=== PATIENT | female | born 1995 | race Caucasian/White ===

== ENCOUNTER 2016-11-27 13:24 | Emergency (ER) | payer OTHER ==
[~2016-11-27 13:24] MED LIST: CIPRO250 M2 PO; CIPROFLOXACIN250 M1 PO; COLACE100 M1 PO; HYDROCODON-ACE1 EA16 PO; NO MEDS; NORCO 5-325 TA1 EACH PO; NUCYNTA50 M1 PO; SPRINTEC 28 DA1 EACH PO; ZOFRAN ODT4 MG PO
[2016-11-27] MEDS ORDERED: OMEPRAZOLE20 M4 PO (13:32)
[2016-11-27] MEDS ORDERED: BIRTH CONTROL (13:32)
[2016-11-27 14:45] LABS: BASO % 0.1 % (0-2); EOS % 0.1 % (0-7); HGB-HEMOGLOBIN 15.1 gm/dl (12.0-15.5); IMMATURE GRANULOCYTES ABSOLUTE 0.03 tho/cmm (0-0.03); IMMATURE GRANULOCYTES PERCENT 0.2 % (0-0.3); LYMPH % 7.6 % (20-45); LYMPH ABSOLUTE COUNT 1.3 tho/cmm (0.8-4.5); MCH (MEAN CORPUSCULAR HGB) 29.8 pg (28.0-32.0); MCHC MEAN CORPUSCULAR HGB CONC 33.6 % (32.0-36.0); MCV (MEAN CELL VOLUME) 88.8 fl (82.0-96.0); MEAN PLATELET VOLUME 10.2 cmc (9.4-12.4); MONO % 3.5 % (0-12); MONOCYTE ABSOLUTE COUNT 0.6 tho/cmm (0.0-1.2); NEUTROPHIL ABSOLUTE COUNT 14.9 tho/cmm (1.6-8.0); NEUTROPHIL-AUTOMATED 14.9 tho/cmm (1.6-8.0); NEUTROPHILS % 88.5 % (40-80); PLATELET COUNT 287 tho/cmm (150-450); RED BLOOD COUNT 5.07 mil/cmm (4.00-5.20); RED CELL DISTRIBUTION WIDTH 13.1 % (12.4-16.4); WHITE BLOOD COUNT 16.9 tho/cmm (4.0-10.0)
[2016-11-27 14:52] LABS: PREGNANCY-SERUM NEGATIVE (NEGATIVE)
[2016-11-27 14:59] LABS: ALB/GLOB RATIO 1.1 (0.8-2.0); ALBUMIN 4.4 g/dl (3.5-5.0); ALKALINE PHOSPHATASE 67 U/L (33-138); ALT/SGPT 22 U/L (12-78); ANION GAP 13 mmol/L (0-20); BILIRUBIN,TOTAL 0.6 mg/dl (0-1.5); BLOOD UREA NITROGEN 12 mg/dl (6-24); CALCIUM 9.1 mg/dl (8.5-10.5); CARBON DIOXIDE-VENOUS 24 mmol/L (22-32); CHLORIDE 108 mmol/l (96-110); CREATININE 1.02 mg/dl (0.50-1.10); GLUCOSE 89 mg/dL (70-110); LIPASE 188 U/L (73-393); POTASSIUM 4.2 mmol/L (3.7-5.1); SODIUM 141 mmol/L (135-145); eGFR VALUE FOR BLACK >90 mL/Min
[2016-11-27 15:03] LABS: AST/SGOT 26 U/L (10-40)
[2016-11-27 15:51] LABS: URINE BILIRUBIN NEGATIVE (NEG); URINE BLOOD NEGATIVE (NEG); URINE GLUCOSE (UA) NEGATIVE (NEG); URINE KETONE MODERATE (NEG); URINE NITRITE NEGATIVE (NEG); URINE PROTEIN SMALL (NEG); URINE SPECIFIC GRAVITY 1.015 (1.003-1.030)
[2016-11-27 15:55] LABS: URINE LEUKOCYTE ESTERASE NEGATIVE (NEG)
[2016-11-27 15:56] LABS: URINE APPEARANCE CLEAR; URINE COLOR YELLOW
[2016-11-27 16:02] LABS: URINE BACTERIA 1+; URINE MUCUS 1+
[2016-11-27] MEDS ORDERED: TRAMADOL HCL50 M2 PO (18:11)
[2016-11-27] MEDS ORDERED: PROMETHAZINE HC25 M3 PO (18:11)
[2017-03-10] MEDS ORDERED: ZOFRAN ODT4 MG PO (13:43)
[2017-03-10] MEDS ORDERED: BENTYL10 M1 PO (13:43)
[2017-03-10] MEDS ORDERED: COMPAZINE5 M2 PO (14:51)
== END 2016-11-27 18:25 ==
LOC: EDMED 13:24
PROVIDERS: Physician Assistant
DX: R10.84 Generalized abdominal pain (principal); R11.2 Nausea with vomiting, unspecified; Z87.891 Personal history of nicotine dependence; Z87.442 Personal history of urinary calculi; Z79.899 Other long term (current) drug therapy; Z90.49 Acquired absence of other specified parts of digestive tract; Z90.89 Acquired absence of other organs
CPT/HCPCS: J0780; J2270; J2405; J7030; Q9967